=== PATIENT | male | born 1945 | race Caucasian/White ===

== ENCOUNTER 2019-12-19 03:07 | Emergency (ER) | payer MEDICARE ==
[2019-12-19 03:37] VITALS: O2SAT 98
--- NOTE | 2019-12-19 04:04 | ERPHSYRPT ---
- History of Present Illness Time Seen by Provider: 12/19/19 03:30 Source: patient Exam Limitations: no limitations Patient Subjective Stated Complaint: PT C/O RASH TO CHEST AND BACK X1 WEEK Triage Nursing Assessment: Pt c/o rash to chest and back x1 week. Pt has scabbed areas to chest and back, very itchy. Pt has been living in a box truck x10 days and is concerned about bug bites, bed bugs, etc. Pt had triple A on and has been living in the box truck since his d/c from hospital due to coronavirus and had to quarantine himself away from roommate Physician History: Patient is a 73yo M who presents to ED for evaluation pruritic rash to chest and upper back x 1 week. He has been living in a box truck for 10 days and sleeping on a mattress that was given to him. Patient believes that he may have bed bugs. He has been living in a box truck to quarantine himself from his roomate due to coroa virus. No associated fevers. NO N/V. No diarrhea. Symptoms are mild to moderate in intensity. No specific worsening or improving factors. Patient voices no other c/o at this time Timing/Duration: week(s) Quality: itchy Severity: moderate Location: torso Possible Causes: insect bite Associated Symptoms: denies symptoms Allergies/Adverse Reactions: novacaine Allergy (Severe, Uncoded 12/19/19 03:38) convulsions Home Medications: Atorvastatin Calcium 10 mg PO HS 12/19/19 [History] Clopidogrel Bisulfate [Plavix] 75 mg PO DAILY 12/19/19 [History] Hx Tetanus, Diphtheria Vaccination/Date Given: Yes Hx Influenza Vaccination/Date Given: No Hx Pneumococcal Vaccination/Date Given: No Immunizations Up to Date: Yes Travel Risk - International Travel Have you traveled outside of the country in past 3 weeks: No Have you or anyone close to you been diagnosed with or: No Do your reside in a community with a known COVID-19 case?: Yes If Yes where:: [place] - Coronavirus Screening Has patient experienced Coronavirus symptoms: No - Review of Systems Constitutional: No Fever, No Chills Eyes: No Symptoms Ears, Nose, & Throat: No Symptoms Respiratory: No Symptoms, No Cough, No Dyspnea Cardiac: No Symptoms, No Chest Pain, No Edema, No Syncope Abdominal/Gastrointestinal: No Symptoms, No Abdominal Pain, No Nausea, No Vomiting, No Diarrhea Genitourinary Symptoms: No Symptoms, No Dysuria Musculoskeletal: No Symptoms, No Back Pain, No Neck Pain Skin: Pruritis, Rash, No Cellulitis Neurological: No Dizziness, No Focal Weakness, No Sensory Changes Psychological: No Symptoms Endocrine: No Symptoms Immunological/Allergic: No Symptoms All Other Systems: Reviewed and Negative - Past Medical History Pertinent Past Medical History: Yes Neurological History: No Pertinent History ENT History: No Pertinent History Cardiac History: Aneurysm, High Cholesterol, Myocardial Infarction ([place]) Respiratory History: No Pertinent History Endocrine Medical History: No Pertinent History Musculoskeletal History: Fractures GI Medical History: No Pertinent History History: Other Psycho-Social History: No Pertinent History Male Reproductive Disorders: No Pertinent History Other Medical History: kidney infections - Past Surgical History Past Surgical History: Yes Neuro Surgical History: No Pertinent History Cardiac: Cardiac Catheterization, Other Respiratory: No Pertinent History Gastrointestinal: Hernia Repair Genitourinary: No Pertinent History Musculoskeletal: Orthopedic Surgery Male Surgical History: No Pertinent History Other Surgical History: triple A repair - Social History Smoking Status: Former smoker How long have you smoked: 1 Exposure to second hand smoke: Yes Drug Use: marijuana Patient Lives Alone: No - Nursing Vital Signs Nursing Vital Signs: Initial Vital Signs Temperature 98.6 F 12/19/19 03:20 Pulse Rate 80 12/19/19 03:20 Respiratory Rate 18 12/19/19 03:20 Blood Pressure 132/74 12/19/19 03:20 O2 Sat by Pulse Oximetry 100 12/19/19 03:20 Pain Scale Pain Intensity 0 - Physical Exam General Appearance: no apparent distress, alert Eye Exam: PERRL/EOMI, eyes nml inspection Ears, Nose, Throat Exam: normal ENT inspection, pharynx normal, moist mucous membranes Neck Exam: normal inspection, non-tender, supple, full range of motion Respiratory Exam: normal breath sounds, lungs clear, No respiratory distress Cardiovascular Exam: regular rate/rhythm, normal heart sounds Gastrointestinal/Abdomen Exam: soft, mass, No tenderness Back Exam: normal inspection, normal range of motion, No CVA tenderness, No vertebral tenderness Extremity Exam: normal inspection, normal range of motion Neurologic Exam: alert, oriented x 3, cooperative, normal mood/affect, sensation nml, No motor deficits Skin Exam: normal color, warm, dry, other (Pruritic papular rash on chest and upper back. Some lesions are scabbed over from scratching. No superimposed cellulits. No open or draining lesions. ) SpO2 Interpretation: normal SpO2: 98 O2 Delivery: Room Air Ordered Tests: Active Orders 24 hr Category Date Time Status Isolation, Initiate & Maintain Q4H Care 12/19/19 03:36 Active - Progress Progress Note: 12/19/19 04:14 NO active pruritis at this time. will treat with permethrin Counseled pt/family regarding: diagnosis, need for follow-up - Departure Departure Disposition: Home Clinical Impression: Pruritic rash Condition: Stable Critical Care Time: No Referrals: DOCTOR,NO FAMILY [Primary Care Provider] - Prescriptions: Permethrin Cream [Elimite CREAM] 0 gm TOP DAILY PRN PRN #1 tube PRN Reason: Itching
[2019-12-19 04:29] VITALS: BP 124/65; PULSE 69
== END 2019-12-19 04:31 | disposition home or self-care (01) ==
LOC: ED 03:07
DX: L29.9 Pruritus, unspecified (principal)
CPT/HCPCS: 99283

== ENCOUNTER 2021-07-15 15:17 | Emergency (ER) | payer MEDICARE ==
--- NOTE | 2021-07-15 15:20 | ERPHSYRPT ---
- History of Present Illness Time Seen by Provider: 07/15/21 15:20 Historian: patient Exam Limitations: no limitations Physician History: This is a 75-year-old white male who has had a history of 3 myocardial infarctions in the past. He has [address] and 3 abdominal aortic aneurysm stents in place. He has a history of coronary disease, peripheral vascular disease, and elevated cholesterol. His physician credentialing specialist is Dr. Seo out of [facility]. Patient, over the last several years, has decided only to keep himself on Plavix and cholesterol lowering medication. Approximately an hour and a half prior to arrival to the emergency department, matthew laeman was experiencing some substernal, central chest pressure without radiation. This chest pressure is different than his prior myocardial infarction's. Patient denies shortness of breath. He has no abdominal pain. He has no cough. He has no nausea vomiting or diarrhea. Patient arrives to e mergency department and states that his symptoms resolved completely. Patient refuses taking the aspirin we offered him when he arrived to the emergency department Timing/Duration: today Activities at Onset: none Quality: pressure Location: substernal, central Chest Pain Radiation: no radiation Severity of Pain-Max: mild Severity of Pain-Current: none Modifying Factors: Improves With: nothing Associated Symptoms: denies symptoms Prior Chest Pain/Cardiac Workup: heart attack Nitro Today/Relief: no nitro taken today Aspirin Treatment Today: no aspirin today Allergies/Adverse Reactions: novacaine Allergy (Severe, Uncoded 12/19/19 03:38) convulsions Home Medications: Atorvastatin Calcium 10 mg PO HS 12/19/19 [History] Clopidogrel Bisulfate [Plavix] 75 mg PO DAILY 12/19/19 [History] Hx Tetanus, Diphtheria Vaccination/Date Given: Yes Hx Influenza Vaccination/Date Given: No Hx Pneumococcal Vaccination/Date Given: No Travel Risk - International Travel Have you traveled outside of the country in past 3 weeks: No - Coronavirus Screening Are you exhibiting any of the following symptoms?: No Close contact with a COVID-19 positive Pt in past 14-21 Days: No - Review of Systems Constitutional: No Symptoms Eyes: No Symptoms Ears, Nose, & Throat: No Symptoms Respiratory: No Symptoms Cardiac: Chest Pain (Described as a nonradiating substernal, central pressure) Abdominal/Gastrointestinal: No Symptoms Genitourinary Symptoms: No Symptoms Musculoskeletal: No Symptoms Skin: No Symptoms Neurological: No Symptoms Psychological: No Symptoms Endocrine: No Symptoms Hematologic/Lymphatic: No Symptoms Immunological/Allergic: No Symptoms All Other Systems: Reviewed and Negative - Past Medical History Pertinent Past Medical History: Yes Neurological History: No Pertinent History ENT History: No Pertinent History Cardiac History: Aneurysm, High Cholesterol, Myocardial Infarction ([place]) Respiratory History: No Pertinent History Endocrine Medical History: No Pertinent History Musculoskeletal History: Fractures GI Medical History: No Pertinent History History: Other Psycho-Social History: No Pertinent History Male Reproductive Disorders: No Pertinent History Other Medical History: kidney infections - Past Surgical History Past Surgical History: Yes Neuro Surgical History: No Pertinent History Cardiac: Cardiac Catheterization, Other Respiratory: No Pertinent History Gastrointestinal: Hernia Repair Genitourinary: No Pertinent History Musculoskeletal: Orthopedic Surgery Male Surgical History: No Pertinent History Other Surgical History: triple A repair - Social History Smoking Status: Former smoker How long have you smoked: 1 Exposure to second hand smoke: Yes Drug Use: marijuana Patient Lives Alone: No - Nursing Vital Signs Nursing Vital Signs: Initial Vital Signs Temperature 97.8 F 07/15/21 15:30 Pulse Rate 84 07/15/21 15:30 Respiratory Rate 22 07/15/21 15:30 Blood Pressure 157/82 07/15/21 15:30 O2 Sat by Pulse Oximetry 99 07/15/21 15:30 Pain Scale Pain Intensity 0 - Physical Exam General Appearance: no apparent distress, alert, thin Eye Exam: PERRL/EOMI, eyes nml inspection Ears, Nose, Throat Exam: normal ENT inspection, moist mucous membranes Neck Exam: normal inspection, non-tender, supple, full range of motion Respiratory Exam: normal breath sounds, lungs clear, airway intact, No chest tenderness, No respiratory distress Cardiovascular Exam: regular rate/rhythm, normal heart sounds, normal peripheral pulses Gastrointestinal/Abdomen Exam: soft, normal bowel sounds, No tenderness Rectal Exam: not done Back Exam: normal inspection, normal range of motion, No CVA tenderness, No vertebral tenderness Extremity Exam: normal inspection, normal range of motion, pelvis stable Neurologic Exam: alert, oriented x 3, cooperative, disc pad knockout worker II-XII nml as tested, normal mood/affect, nml cerebellar function, nml station & gait, sensation nml Skin Exam: normal color, warm, dry Lymphatic Exam: No adenopathy SpO2 Interpretation: normal O2 Delivery: Room Air - Course Nursing assessment & vital signs reviewed: Yes EKG Interpreted by Me: RATE (98), Sinus Rhythm, NORMAL AXIS, NORMAL INTERVALS, NORMAL QRS, Non-specific ST Changes, Other (There are no acute ischemic changes noted today. There is atrial premature complex present. There is no comparison EKG.) Ordered Tests: Active Orders 24 hr Category Date Time Status Cash Applications Specialist STAT Care 07/15/21 15:22 Active EKG-ER Only STAT Care 07/15/21 15:21 Active IV Insertion STAT Care 07/15/21 15:21 Active Pulse Oximetry (ED) STAT Care 07/15/21 15:21 Active CHEST 1 VIEW (PORTABLE) Stat Exams 07/15/21 15:22 Completed CBC W DIFF Stat Lab 07/15/21 15:28 Completed CMP Stat Lab 07/15/21 15:28 Completed D-DIMER QUANTITATIVE Stat Lab 07/15/21 15:28 Completed NT PRO BNP Stat Lab 07/15/21 15:28 Completed PROTIME WITH INR Stat Lab 07/15/21 15:28 Completed TROPONIN Q3H Lab 07/15/21 15:28 Completed TROPONIN Q3H Lab 07/15/21 18:30 Ordered TROPONIN Q3H Lab 07/15/21 21:30 Ordered TROPONIN Q3H Lab 07/16/21 00:30 Ordered TROPONIN Q3H Lab 07/16/21 03:30 Ordered Medication Summary Discontinued Medications Generic Name Dose Route Start Last Admin Trade Name Freq PRN Reason Stop Dose Admin Aspirin 324 mg 07/15/21 15:21 07/15/21 15:38 Aspirin 81 Mg Tab.Chew PO 07/15/21 15:22 Not Given STAT ONE Lab/Rad Data: Laboratory Result Diagrams 07/15/21 15:28 07/15/21 15:28 Laboratory Results 07/15/21 07/15/21 07/15/21 Range/Units 15:28 15:28 15:28 WBC (4.0-10.5) K/mm3 RBC (4.1-5.6) M/mm3 Hgb (12.5-18.0) gm/dl Hct (42-50) % MCV (78-100) fl MCH (26-32) pg MCHC (32-36) g/dl RDW (11.5-14.0) % Plt Count (150-450) K/mm3 MPV (7.5-11.0) fl Gran % (36.0-66.0) % Eos # (Auto) (0-0.5) Absolute Lymphs (auto) (1.0-4.6) Absolute Monos (auto) (0.0-1.3) Lymphocytes % (24.0-44.0) % Monocytes % (0.0-12.0) % Eosinophils % (0.00-5.0) % Basophils % (0.0-0.4) % Absolute Granulocytes (1.4-6.9) Basophils # (0-0.4) PT 11.9 (9.4-12.5) SECONDS INR 1.01 (0.8-3.0) D-Dimer 4938 H* (215-500) ng/mL Sodium 144 (137-145) mmol/L Potassium 3.8 (3.5-5.1) mmol/L Chloride 106 (98-107) mmol/L Carbon Dioxide 25 (22-30) mmol/L Anion Gap 16.4 H (5-15) MEQ/L BUN 17 (9-20) mg/dL Creatinine 1.44 H (0.66-1.25) mg/dL Estimated GFR 51.0 ML/MIN Glucose 100 (74-106) mg/dL Calcium 9.3 (8.4-10.2) mg/dL Total Bilirubin 0.50 (0.2-1.3) mg/dL AST 25 (17-59) U/L ALT 16 (0-50) U/L Alkaline Phosphatase 142 H (38-126) U/L Troponin I 0.031 (0.000-0.034) ng/mL NT-Pro-B Natriuret Pep 1160 H (0-900) pg/mL Serum Total Protein 8.2 (6.3-8.2) g/dL Albumin 4.9 (3.5-5.0) g/dL 07/15/21 Range/Units 15:28 WBC 11.5 H (4.0-10.5) K/mm3 RBC 4.89 (4.1-5.6) M/mm3 Hgb 13.7 (12.5-18.0) gm/dl Hct 42.8 (42-50) % MCV 87.5 (78-100) fl MCH 28.0 (26-32) pg MCHC 32.0 (32-36) g/dl RDW 15.2 H (11.5-14.0) % Plt Count 229 (150-450) K/mm3 MPV 11.1 H (7.5-11.0) fl Gran % 70.0 H (36.0-66.0) % Eos # (Auto) 0.55 H (0-0.5) Absolute Lymphs (auto) 2.13 (1.0-4.6) Absolute Monos (auto) 0.75 (0.0-1.3) Lymphocytes % 18.5 L (24.0-44.0) % Monocytes % 6.5 (0.0-12.0) % Eosinophils % 4.8 (0.00-5.0) % Basophils % 0.2 (0.0-0.4) % Absolute Granulocytes 8.07 H (1.4-6.9) Basophils # 0.02 (0-0.4) PT (9.4-12.5) SECONDS INR (0.8-3.0) D-Dimer (215-500) ng/mL Sodium (137-145) mmol/L Potassium (3.5-5.1) mmol/L Chloride (98-107) mmol/L Carbon Dioxide (22-30) mmol/L Anion Gap (5-15) MEQ/L BUN (9-20) mg/dL Creatinine (0.66-1.25) mg/dL Estimated GFR ML/MIN Glucose (74-106) mg/dL Calcium (8.4-10.2) mg/dL Total Bilirubin (0.2-1.3) mg/dL AST (17-59) U/L ALT (0-50) U/L Alkaline Phosphatase (38-126) U/L Troponin I (0.000-0.034) ng/mL NT-Pro-B Natriuret Pep (0-900) pg/mL Serum Total Protein (6.3-8.2) g/dL Albumin (3.5-5.0) g/dL - Progress Progress: unchanged Air Movement: good Progress Note: 07/15/21 16:10 Chest x-ray shows no acute cardiopulmonary process. Medical decision making: This patient, at the outset, stated to me that he does not want a second EKG and troponin level at 3 hours. He was told that his D- dimer test was over 4900 which is significantly high suggesting the possibility of pulmonary embolus. This was told to the patient as well. He is refusing this test. Patient has already refused taking his aspirin. Therefore, I spoke to him at length stating that if he leaves without a full, completed work-up, he could if he in fact has a evolving myocardial infarction or has actual pulmonary emboli present. He is not concerned about this. He realizes also that his condition could worsen. However, this did not change his mind. He will sign an AMA form as well as refusal of tests. He does want to wait for the initial lab results to return. He was informed of his chest x-ray finding. 07/15/21 17:29 The patient's first troponin is 0.031. This is in the normal range of the high normal range. I discussed this with the patient. He still wants to leave he has signed the AMA form and refusal of test form. Counseled pt/family regarding: lab results, diagnosis, need for follow-up, rad results - Departure Departure Disposition: AMA Clinical Impression: Chest pain, Elevated d-dimer Condition: Stable Critical Care Time: No Referrals: DOCTOR,NO FAMILY [Primary Care Provider] - Follow up/PCP as directed Additional Instructions: Return to the emergency department if symptoms worsen. Call your physician credentialing specialist tomorrow to make arrangements for follow-up appointment.
[2021-07-15] MEDS: BABY ASPIRIN 81 MG CHEW PO ONE (15:38)
[2021-07-15 15:44] LABS: INR 1.01 (0.8-3.0); PROTIME 11.9 SECONDS (9.4-12.5)
[2021-07-15 15:56] LABS: ALBUMIN 4.9 g/dL (3.5-5.0); ANION GAP 16.4 MEQ/L (5-15); BILIRUBIN,TOTAL 0.5 mg/dL (0.2-1.3); Calcium 9.3 mg/dL (8.4-10.2); Creatinine 1 1.44 mg/dL (0.66-1.25); Potassium 3.8 mmol/L (3.5-5.1); Total Protein 8.2 g/dL (6.3-8.2)
[2021-07-15 16:02] LABS: Absolute Neutrophil Ct (ANC) 8.07 (1.4-6.9); BASOPHIL % 0.2 % (0.0-0.4); Basophil (Absolute #) 0.02 (0-0.4); Eosinophil % 4.8 % (0.00-5.0); Eosinophil (Absolute #) 0.55 (0-0.5); Hematocrit 42.8 % (42-50); Hemoglobin 13.7 gm/dl (12.5-18.0); Lymphocyte (Absolute #) 2.13 (1.0-4.6); Lymphocytes % 18.5 % (24.0-44.0); Mean Cell Volume 87.5 fl (78-100); Mean Platelet Volume 11.1 fl (7.5-11.0); Monocyte (Absolute #) 0.75 (0.0-1.3); Monocytes % 6.5 % (0.0-12.0); Platelet Count 229 K/mm3 (150-450); Red Blood Count 4.89 M/mm3 (4.1-5.6); Red Cell Distribution Width 15.2 % (11.5-14.0); White Blood Count 11.5 K/mm3 (4.0-10.5)
[2021-07-15 16:30] VITALS: BP 132/74
--- NOTE | 2021-07-15 16:41 | XRAY ---
Indication: Chest pain. Pressure. Comparison: None Portable chest clear. Heart not enlarged. Bony thorax intact with mild osteopenia and degenerative changes. Impression: Nonacute chest with chronic bony findings.
[2021-07-15 17:14] VITALS: PULSE 87; O2SAT 97
== END 2021-07-15 17:38 | disposition left against medical advice (07) ==
LOC: ED 15:17
DX: R07.89 Other chest pain (principal); R79.1 Abnormal coagulation profile; I25.2 Old myocardial infarction; Z95.5 Presence of coronary angioplasty implant and graft; E78.5 Hyperlipidemia, unspecified; I73.9 Peripheral vascular disease, unspecified; Z79.01 Long term (current) use of anticoagulants; I71.4 Abdominal aortic aneurysm, without rupture
CPT/HCPCS: 36000; 36415; 71045; 80053; 83880; 84484; 85025; 85379; 85610; 93005; 93041; 94760; 99284